=== PATIENT | female | born 1980 | race Caucasian/White ===

== ENCOUNTER 2016-10-31 18:28 | Emergency (ER) | payer BC ==
[~2016-10-31 18:28] MED LIST: CITA-48 PO; SPRI28TA PO; ZITH250T PO
[2016-10-31 19:22] VITALS: BP 109/60; PULSE 77; RESP 16; TEMP 98.4; O2SAT 95
[2016-10-31] MEDS ORDERED: KETOROLAC TROMETHAMINE 60 MG/2 ML (IM) VIAL IM ONE (19:30)
[2016-10-31] MEDS ORDERED: ORPHENADRINE INJ 60 MG/2 ML AMP IM ONE (19:30)
[2016-10-31] MEDS ORDERED: ACETAMINOPHEN/HYDROcodone 325 MG/5 MG TAB PO ONE (20:30)
--- NOTE | 2016-10-31 20:34 | PD ---
HPI Chief Complaint: Musculoskeletal Complaint Time Seen by Provider: 20:00 Travel History International Travel<30 days: No Contact w/Intl Traveler<30days: No Traveled to known affect area: No History of Present Illness HPI 36-year-old female presents to the emergency room via ambulance for evaluation of low back pain for the past several hours. Patient states pain started acutely after she lifted a heavy mattress. She felt an immediate pop and dropped to the ground. She has not been able to walk because of the pain since. Patient states the pain feels like muscle spasms and occurs with range of motion of the back. It is localized to the lower right back without radiation. Patient took 600 mg ibuprofen without any relief in symptoms. Denies upper or lower extremity paresthesias, saddle anesthesia, or loss of bowel or bladder control. She denies history of back pain. No chronic medical conditions or daily medications. PFSH Past Medical History Anxiety: Yes Heart Rhythm Problems: Yes (PACs) Diminished Hearing: No Immunizations Current: Yes Tetanus Vaccination: Unknown Influenza Vaccination: Yes ?: Not LMP: 2 weeks Past Surgical History Section: Yes Cholecystectomy: Yes Social History Alcohol Use: No Tobacco Use: No Substance Use: No Allergies-Medications (Allergen,Severity, Reaction): Coded Allergies: Penicillin (Verified Allergy, Intermediate, hives, 10/31/16) Reported Meds & Prescriptions Reported Meds & Active Scripts Active Ibuprofen 600 Mg Tab 600 Mg PO Q8HR PRN Robaxin (Methocarbamol) 750 Mg Tab 750 Mg PO Q8HR Prednisone 20 Mg Tab 40 Mg PO DAILY Take 40 mg (2 tablets) daily for 5 days Review of Systems Except as stated in HPI: all other systems reviewed are Neg Physical Exam Narrative GENERAL: Well-nourished, well-developed female in no acute distress. Afebrile. Ambulatory. Patient is lying on her left side and in significant pain. SKIN: Focused skin assessment warm/dry. HEAD: Normocephalic. EYES: No scleral icterus. No injection or drainage. NECK: Supple, trachea midline. No JVD or lymphadenopathy. CARDIOVASCULAR: Regular rate and rhythm without murmurs, gallops, or rubs. RESPIRATORY: Breath sounds equal bilaterally. No accessory muscle use. BACK: No CVA tenderness. No rash. Extreme tenderness to palpation of the right lower lumbar region. Data Data Last Documented VS Vital Signs Date Time Temp Pulse Resp B/P Pulse Ox O2 Delivery O2 Flow Rate FiO2 10/31/16 19:22 98.4 77 16 109/60 95 Orders Orphenadrine Inj (Norflex Inj) (10/31/16 19:30) Ketorolac Inj (Toradol Inj) (10/31/16 19:30) Acetamin-Hydrocod 325-5 Mg ([place] 5-325 (10/31/16 20:30) Spine, Lumbar - Ltd (Ap & Lat) (10/31/16 ) MDM Medical Decision Making Medical Screen Exam Complete: Yes Emergency Medical Condition: Yes Medical Record Reviewed: Yes Differential Diagnosis Muscle spasm, fracture, strain, sprain Narrative Course 36-year-old female presents to the emergency room for evaluation of low back pain after lifting a heavy mattress earlier today. Patient felt immediate pain upon lifting has been unable to walk because of the pain since neurological deficits. There is extreme tenderness to palpation of the right paraspinous lumbar musculature. Patient is lying on her left side and has minimal movement in bed because of pain. She was given Toradol and Norflex and reports minimal relief in symptoms. She was then given Lortab. Patient reports moderate relief in symptoms and was able to move in the bed and transferred to a bedside commode. Given the extreme tenderness to palpation, it was recommended patient have CT but she declined stating that she believes it is a muscle spasm. X-ray was ordered which shows no acute bony abnormality. Patient will be discharged with prescriptions for ibuprofen, Robaxin, and prednisone. Told to follow up with a primary care physician or return for worsening symptoms. She understands and agrees to plan. Diagnosis Primary Impression: Muscle spasm of back Additional Impression: Low back strain Qualified Code: S39.012A - Low back strain, initial encounter Referrals: Primary Care Physician Patient Instructions: General Instructions, Low Back Strain (ED), Muscle Spasm (ED) Additional Instructions: Rest and drink plenty of fluids. Prednisone as directed, until gone. Take Robaxin as directed, as needed for pain. Take ibuprofen with food as directed, as needed for pain. Apply ice to the affected area for 20 minutes at a time, as needed for pain and swelling. Follow-up with a primary care physician. Return to the emergency room for worsening symptoms. Med/Other Pt SpecificInfo: Prescription(s) given Scripts Ibuprofen 600 Mg [id number] Mg PO Q8HR PRN (PAIN) #21 TAB Ref 0 Prov:Jaguar Seals MD 10/31/16 Methocarbamol (Robaxin)750 Mg [id number] Mg PO Q8HR #15 TAB Ref 0 Prov:Jaguar Seals MD 10/31/16 Prednisone 20 Mg Tab40 Mg PO DAILY #10 TAB Ref 0 Take 40 mg (2 tablets) daily for 5 days Prov:Jaguar Seals MD 10/31/16 Disposition: 01 DISCHARGE HOME Condition: Stable Tamiko De La Rosa Oct 31, 2016 20:34
--- NOTE | 2016-10-31 22:01 | RADRPT ---
EXAM DATE/TIME: 10/31/2016 21:09 [facility] COMPARISON: No previous studies available for comparison. INDICATIONS : Patient fell this evening and hurt her lower spine. MEDICAL HISTORY : None. SURGICAL HISTORY : None. ENCOUNTER: Initial ACUITY: 1 day PAIN SCORE: 8/10 LOCATION: Bilateral Lower back. FINDINGS: Two view examination was performed. There are five non-rib bearing vertebral bodies. The vertebral bodies are in normal alignment without evidence of subluxation or scoliosis. The disc spaces are tanner ntained. The pedicles are intact. Bony mineralization is normal. No fracture is identified. Patipriscilla t is status post cholecystectomy with surgical clips in the right upper quadrant. CONCLUSION: Negative trauma study. Jose J Barbosa MD on October 31, 2016 at 21:59 Board Certified Radiologist. This report was verified electronically.
[2016-10-31] MEDS ORDERED: ROBA750T PO (22:12)
[2016-10-31] MEDS ORDERED: PRED20 PO (22:12)
[2016-10-31] MEDS ORDERED: IBUP-232 PO (22:12)
[2016-10-31 22:31] VITALS: BP 134/80
== END 2016-10-31 22:31 | disposition home or self-care (01) ==
LOC: PHED 18:28 → PHEFT 22:31
DX: S39.012A Strain of muscle, fascia and tendon of lower back, initial encounter (principal); M62.830 Muscle spasm of back; X50.0XXA Overexertion from strenuous movement or load, initial encounter
CPT/HCPCS: 72100; 96372; 99284; J1885; J2360